=== PATIENT | male | born 1955 | race Caucasian/White ===

== ENCOUNTER 2025-04-07 01:35 | Emergency (ER) | payer MEDICARE, BC ==
[~2025-04-07] VITALS: Ht 170.2 cm; Wt 95.4 kg
[2025-04-07] MEDS: OXYMETAZOLINE 0.05% NASAL SPRAY ONE (02:18)
[2025-04-07 02:50] LABS: BASO # 0.1 10^3/uL (0.0-0.2); BASO % 0.9 % (0.0-1.0); EOS # 0.3 10^3/uL (0.0-0.5); EOS % 3.3 % (0.0-3.0); LYMPH # 1.5 10^3/uL (1.5-5.0); LYMPH % 15.9 % (24.0-44.0); MONO # 0.8 10^3/uL (0.0-0.8); MONO % 8.3 % (2.0-8.0); NEUTROPHILS # 6.7 10^3/uL (1.5-8.5); NEUTROPHILS % 71.4 % (36.0-66.0); PLATELET COUNT, AUTOMATED 209 10^3/uL (150-450)
[2025-04-07] MEDS ORDERED: SALI0.652 NARES (05:23)
[2025-04-07 05:24] VITALS: BP 113/65; O2SAT 97
== END 2025-04-07 05:35 | disposition home or self-care (01) ==
LOC: M ED 01:35
DX: R04.0 Epistaxis (principal); I48.91 Unspecified atrial fibrillation; I10 Essential (primary) hypertension; Z79.01 Long term (current) use of anticoagulants; Z91.030 Bee allergy status